=== PATIENT | male | born 1995 | race African-American/Black ===

== ENCOUNTER 2022-05-07 22:22 | Emergency (ER) | payer OTHER, SELFPAY ==
--- NOTE | ~2022-05-07 | XR_ITS ---
EXAMINATION: XR CHEST CLINICAL INFORMATION: Shortness of breath COMPARISON: None TECHNIQUE: Frontal view of the chest was obtained. FINDINGS: The lungs are clear. No airspace consolidation, pleural effusion, or pneumothorax. The cardiomediastinal silhouette is within normal limits. No acute osseous injury. XR/XR chest 1V IMPRESSION: No acute pulmonary process.
[2022-05-07 22:25] VITALS: BP 145/86; PULSE 94; RESP 22; TEMP 36.6; O2SAT 95; BMI 28.0
--- NOTE | 2022-05-07 22:38 | ED.SOB ---
HPI - SOB/Dyspnea General Chief Complaint: Dyspnea Stated Complaint: asthma Time Seen by Provider: 05/07/22 22:36 Source: patient Mode of arrival: ambulatory Limitations: no limitations History of Present Illness HPI Narrative: 26-year-old male presents for asthma exacerbation. States that he has been short of breath, with inspiratory and expiratory wheezing over the past few days. Patient does not have any medications for his asthma at this time, does not report fevers, chills, weakness or fatigue. MD elicited complaint: shortness of breath and asthma attack Pertinent past history: asthma Onset (ago): day(s) (3) Context: medication noncompliance Timing: progressively worsening Severity: moderate Exacerbating factors: exertion, movement, coughing, inspiration, talking and deep breaths Relieving factors: nothing Known history of: asthma Associated symptoms: denies other symptoms Treatment prior to arrival: none Related Data Home oxygen amount: none Previous Rx's Medication Instructions Recorded albuterol sulfate 0.63 mg/3 mL 0.63 mg (3 mL) inhalation Q4-6H 05/08/22 solution for nebulization PRN shortness of breath or wheezing #75 mL albuterol sulfate 90 mcg/actuation 2 puff inhalation Q4-6H PRN 05/08/22 aerosol inhaler (Ventolin HFA) shortness of breath or wheezing #6.7 grams prednisone 20 mg tablet 40 mg PO DAILY 5 days #10 tabs 05/08/22 Allergies Allergy/AdvReac Type Severity Reaction Status Date / Time amoxicillin Allergy Swelling Verified 05/07/22 22:29 iodine Allergy Swelling Verified 05/07/22 22:29 Penicillins Allergy Swelling Verified 05/07/22 22:29 Review of Systems Review of Systems: Constitutional: No Fever, No Chills ENT/Mouth: No Hoarseness, No sore throat, No Rhinorrhea Eyes: No Redness, No Discharge, No Vision Changes Cardiovascular: No Chest Pain, positive SOB, positive Dyspnea on Exertion, No Edema Respiratory: positive Cough, No Sputum, positive Wheezing Skin: No rash Neuro: No Weakness, No Numbness, No Headache Yes all other systems are reviewed and are negative [facility] Past Medical History Attestation statement: The following information was validated with the patient. Source: old records reviewed Social History Social History Advance Directives: No Advance Directives Information Provided: Yes Physical Exam Vital Signs: Vital Signs: Last Vital Signs Temp 98.1 F 05/08/22 00:12 Pulse 90 05/08/22 00:12 Resp 18 05/08/22 00:12 BP 113/82 05/08/22 00:12 Pulse Ox 96 05/08/22 00:12 O2 Del Method 05/08/22 00:12 BMI result Body Mass Index 28.0 Appearance: Alert. Oriented X3. No acute distress. Eyes: Pupils equal, round and reactive to light. ENT: Pharynx normal. Neck: Normal inspection. Neck supple. CVS: Tachycardic heart rate and rhythm. Apical pulses good pulses to extremities. Respiratory: Mild respiratory distress. Tachypneic. Inspiratory and expiratory wheezing with poor air flow. Abdomen: Soft and nontender. Skin: Skin warm and dry. Normal skin color. Normal skin turgor. Extremities: No lower extremity edema. Gait well-balanced well coordinated. Neuro: No motor deficit. No sensory deficit. Cranial nerves 2-12 intact. Course Course Course Narrative: 26-year-old male presents with asthma exacerbation. Has expiratory and inspiratory wheezing with poor air flow, tachypneic, and tachycardic. Patient is able to speak in complete sentences. Denies fevers, chills, edema and weakness. Will order chest x-ray, Solu-Medrol, albuterol neb and inhaler. 23:32 neb continues, no improvement lung sounds. We will order magnesium. 00:15 patient continues with expiratory wheezing have improved. Will order 2nd neb. 00:43 chest x-ray is negative for acute findings. COVID influenza RSV are negative. 20:46 lung sounds have improved. Will discharge patient home with prescription for albuterol and albuterol nebulizers and prednisone. Patient does not have a primary care physician, will refer to Dr. Wells. Patient does understand that if symptoms worsen that he should return for further evaluation. Patient verbalized understanding of and agrees to plan of care discharge home. Verbalized understanding of signs and symptoms indicating need for emergent intervention. Medications Administered Generic Name Dose Route Start Last Admin Trade Name Freq PRN Reason Stop Dose Admin Magnesium Sulfate 2 gm in 50 mls @ 25 mls/hr 05/07/22 23:34 05/07/22 23:47 Magnesium Sulfate/H2o IV 05/08/22 01:33 25 mls/hr ONCE ONE Administration Discontinued Medications Generic Name Dose Route Start Last Admin Trade Name Freq PRN Reason Stop Dose Admin Albuterol Sulfate 10 mg 05/07/22 22:38 05/07/22 22:51 Albuterol Sulfate (0.083%) 2.5 Mg/3 Ml Vial.Neb INHALE 05/07/22 22:39 10 mg ONCE ONE Administration Albuterol Sulfate 2 puff 05/07/22 22:39 05/07/22 22:51 Albuterol Sulfate 90 Mcg 8 Gm Inhaler INHALE 05/07/22 22:40 2 puff ONCE ONE Administration Albuterol Sulfate 5 mg 05/08/22 00:16 05/08/22 00:22 Albuterol Sulfate (0.083%) 2.5 Mg/3 Ml Vial.Neb INHALE 05/08/22 00:17 5 mg ONCE ONE Administration Methylprednisolone Sodium Succinate 125 mg 05/07/22 22:38 05/07/22 23:07 Methylprednisolone Sod Succ 125 Mg/2 Ml Vial IVPUSH 05/07/22 22:39 125 mg ONCE ONE Administration Medical Decision Making Differential Diagnosis Differential Diagnoses: The differential diagnosis associated with the presentation includes Asthma exacerbation, COVID, influenza, RSV Lab Data MDM Lab Attestation statement: I reviewed the patient's lab results. Labs: Lab Results 05/07/22 Range/Units 23:37 Influenza Type A (PCR) NEGATIVE (Negative) Influenza Type B (PCR) NEGATIVE (Negative) RSV RNA Qual (PCR) NEGATIVE (Negative) SARS-CoV-2 RNA (RT-PCR) NEGATIVE (Negative) Independent Interpretation I performed an independent interpretation of an: Plain X-Ray Radiology Impression Discussion of test interpretation with radiology: I have reviewed the radiologist's reading. Radiologist Impression: EXAMINATION: XR CHEST CLINICAL INFORMATION: Shortness of breath COMPARISON: None TECHNIQUE: Frontal view of the chest was obtained. FINDINGS: The lungs are clear. No airspace consolidation, pleural effusion, or pneumothorax. The cardiomediastinal silhouette is within normal limits. No acute osseous injury. XR/XR chest 1V IMPRESSION: No acute pulmonary process. External Record Review External record reviewed: Outpatient record Prescription Management I considered prescription management with: Other (Albuterol) Chronic Conditions Patient?s care impacted by: Other (Asthma) Discharge Plan Discharge Clinical Impression: Asthma with exacerbation Patient Disposition: Home, Self-Care Instructions: Asthma (ED), How to Use a Nebulizer (ED) Additional Instructions: You were evaluated for asthma exacerbation. Please take prednisone 40 mg for the next 5 days. Use albuterol nebs every 4-6 hours as needed for shortness of breath and wheezing that is not relieved by your albuterol inhaler. Use your albuterol inhaler as needed for shortness of breath and wheezing. Please follow-up with Dr. Wells at the urgent care clinic. You will require primary care, it may take you a few months to obtain a primary care physician. Thank you for choosing this emergency department for evaluation. Please follow-up with primary care physician as needed. Return to the emergency department for any new, concerning, or worsening symptoms. Prescriptions: New prednisone 20 mg tablet 40 mg PO DAILY 5 Days Qty: 10 0RF albuterol sulfate 0.63 mg/3 mL solution for nebulization 0.63 mg inhalation Q4-6H PRN (Reason: shortness of breath or wheezing) Qty: 75 0RF Rx Instructions: May dispense medication equivalent accepted by patient's insurance albuterol sulfate [Ventolin HFA] 90 mcg/actuation HFA aerosol inhaler 2 puff inhalation Q4-6H PRN (Reason: shortness of breath or wheezing) Qty: 6.7 3RF Rx Instructions: May dispense medication equivalent accepted by patient's insurance Referrals: Florentin Wells MD [Physician] - 2 weeks (Obtain primary care)
[2022-05-07] MEDS: Albuterol Sulfate 90 MCG 8 GM INHALER 2 PUFF INHALE (22:51)
[2022-05-07] MEDS: Albuterol Sulfate (0.083%) 2.5 MG/3 ML VIAL.NEB 10 MG INHALE (22:51)
[2022-05-07] MEDS: methylPREDNISolone Sod Succ 125 MG/2 ML VIAL IVPUSH (23:07)
--- OUTSIDE RECORDS SUMMARY | 2022-05-07 23:24 | XMS_ITS | Continuity of Care Document ---
:1995 Author Organization [facility] Address [address] [place] [address]- Care Team Providers Name Role Phone Rafael Nolasco Primary Care Physician Encounter [facility] [place] Date(s): 03/17/21 - 06/04/21 [facility] [address] [place], [place] [address] Attending Physician: Nata Rey MD Admitting Physician: Nata Rey MD Referring Physician: Rafael Nolasco Allergies, Adverse Reactions, Alerts Substance Reaction Severity Status penicillin Active Fish Persistent Severe Active Medications Acetaminophen 160 mg / 5 mL Liquid By Mouth, Every 4 hours, PRN Headache, 0 Refills, Maintenance, 10/17/18 15:51:46 EDT Start Date: 10/17/18 Status: Orderedalbuterol CFC free 90 mcg/inh inhalation aerosol 1, puffs, Inhalation, Every 4 hours, PRN, Refills 0, Maintenance, 10/17/18 15:48:08 EDT, Aerosol Start Date: 10/17/18 Status: Orderedfluticasone-salmeterol 100 mcg-50 mcg inhalation powder 1, puffs, Inhalation, 2 times a day, Refills 0, Maintenance, 10/17/18 15:47:55 EDT, Powder Start Date: 10/17/18 Status: Orderedpantoprazole 40 mg oral delayed release tablet 1 tablet = 40 mg, By Mouth, Daily, 0 Refills, Maintenance, 10/17/18 15:47:14 EDT Start Date: 10/17/18 Status: Ordered
--- OUTSIDE RECORDS SUMMARY | 2022-05-07 23:24 | XMS_ITS | Continuity of Care Document ---
:1995 Author Organization [facility] Address [address] [place] [address]- Care Team Providers Name Role Phone Rafael Nolasco Primary Care Physician Encounter [facility] [place] Date(s): 08/11/21 - 12/09/21 [facility] [address] [id number] Attending Physician: Hope Kidd Admitting Physician: Hope Kidd Referring Physician: Hope Kidd Allergies, Adverse Reactions, Alerts Substance Reaction Severity Status penicillin Active shellfish Active Fish Persistent Severe Active iodine Active Medications Acetaminophen 160 mg / 5 [...] 15:47:14 EDT Start Date: 10/17/18 Status: Ordered Problem List Condition Effective Dates Status Health Status Informant Asthma(Confirmed) Active Eczema(Confirmed) Active Care Team PersonnelName: Rafael Nolasco Address: [address] [place] [address] [place] [address]- [place]
--- OUTSIDE RECORDS SUMMARY | 2022-05-07 23:24 | XMS_ITS | Continuity of Care Document ---
:1995 Author Organization [facility] Address [address] [place] [address]- Care Team Providers Name Role Phone Rafael Nolasco Primary Care Physician Encounter [facility] [place] Date(s): 05/05/21 - 06/04/21 [facility] [address] [place], [place] [address] Attending Physician: Tom Javed Admitting Physician: Tom Javed Referring Physician: AdmtrTom Allergies, Adverse Reactions, Alerts Substance Reaction Severity [...]
--- OUTSIDE RECORDS SUMMARY | 2022-05-07 23:24 | XMS_ITS | Continuity of Care Document ---
:1995 Author Organization [facility] Address [address] [place] [address]- Care Team Providers Name Role Phone Rafael Nolasco Primary Care Physician Encounter [facility] [place] Date(s): 09/22/21 - 10/28/[address] [address] Attending Physician: Hope Kidd Admitting Physician: [...]
--- OUTSIDE RECORDS SUMMARY | 2022-05-07 23:24 | XMS_ITS | Continuity of Care Document ---
:1995 Author Organization [facility] Address [address] [place] [address]- Care Team Providers Name Role Phone Rafael Nolasco Primary Care Physician [place] [facility] [place]01[place]22 - 03/31/22 [facility] [address] [address] Attending Physician: Tom Javed Admitting Physician: Tom [...] Date: 10/17/18 Status: Ordered Problem List Condition Confirmation Course Effective Dates Status Health Stat us Informant Asthma Confirmed Active Eczema Confirmed Active Patient Care team information Care Team PersonnelName: Rafael Nolasco Position: S Outreach Member Role: PCP Address: Address: [address] [place] [address]- [place] Name: Chinedu LOVELL, Katy Read Position: [facility] Associate Professional Member Role: Primary Care Nurse Address: Address: [address] [place] [address]- Name: Reyna Lara RN Position: S RN Member Role: Primary Care Nurse Care Team Related PersonsName: STEFANI KING Address: home [address] [place] [id number]
--- OUTSIDE RECORDS SUMMARY | 2022-05-07 23:24 | XMS_ITS | Continuity of Care Document ---
:1995 Author Organization [facility] Address [address] [place] [address]- Care Team Providers Name Role Phone Rafael Nolasco Primary Care Physician [id number] 05/26/21 - 06/25/21 [facility] [address] [address] Attending Physician: Tom Javed Admitting Physician: AdmtrTom Referring Physician: Admtr, Ar8 Allergies, Adverse Reactions, Alerts Substance Reaction Severity [...]
[2022-05-07] MEDS: Magnesium Sulfate/H2O 2 GM/50 ML PIGGYBACK IV (23:47)
[2022-05-08 00:12] VITALS: BP 113/82; PULSE 90; RESP 18; TEMP 36.7; O2SAT 96
[2022-05-08 00:20] LABS: Influenza A PCR NEGATIVE (Negative); Influenza B PCR NEGATIVE (Negative); Resp Syncy Virus RNA Qual PCR NEGATIVE (Negative); SARS COV2 PCR INHOUSE NEGATIVE (Negative)
[2022-05-08] MEDS: Albuterol Sulfate (0.083%) 2.5 MG/3 ML VIAL.NEB 5 MG INHALE (00:22)
--- NOTE | 2022-05-08 02:03 | PC.NURSE ---
Addendum entered by Karthik Hutchison RN 05/08/22 02:17: Discharged at this time. I reviweqed all DC instructions and proper uses and indications for ALbuterol inhaler, Albuterol neb and prednisone and the pt verbalized an understanding. He ambulated out of the ED independently and with steady gait. At time of DC room air sat 99%, RR 18 non-labored. Original Note: I assumed nursing care of Alvaro at 2300 from everardo YAÑEZ. The pt is alert and oriented x 3, resting in bed. I initiated Magnesium infusion per MD order. Respirations appear spontaneous and non-labored, RR WNL, room air sat's are 95% or better, the pt speaks in full sentences. NO chest pain. NO nausea or vomiting. Speech clear and appropriate. Will prepare pt for DC.
== END 2022-05-08 02:36 | disposition home or self-care (01) ==
PROVIDERS: Nurse Practitioner Family; Emergency Provider Internal Medicine; PCP Physician Assistant Medical
DX: J45.901 Unspecified asthma with (acute) exacerbation (principal); R06.03 Acute respiratory distress; Z20.822 Contact with and (suspected) exposure to COVID-19; Z20.828 Contact with and (suspected) exposure to other viral communicable diseases
CPT/HCPCS: 0241U; 71045; 96374; 96375; 99284; 99285; J2930; J3475

== ENCOUNTER 2022-05-13 19:19 | Emergency (ER) | payer OTHER, SELFPAY ==
--- NOTE | ~2022-05-13 | XR_ITS ---
EXAMINATION: XR CHEST CLINICAL INFORMATION: Cough COMPARISON: 05/07/2022 TECHNIQUE: Frontal view of the chest was obtained. FINDINGS: No significant abnormality is noted involving the heart, lungs, mediastinum, bony thorax or soft tissues. XR/XR chest 1V IMPRESSION: Unremarkable examination.
--- NOTE | 2022-05-13 19:23 | ED.ASTHMA ---
HPI - Asthma General Chief Complaint: Upper Respiratory Symptoms Stated Complaint: SOB/Asthma Time Seen by Provider: 05/13/22 19:22 Source: patient and EMS Mode of arrival: EMS History of Present Illness HPI Narrative: This is a 26 years old male with history of asthma was brought in by the supervisor heading because of respiratory distress sat was in the 80s at the supervisor heading arrival, was given nebulizer pre arrival. MD complaint: asthma attack Onset (ago): day(s) Severity: moderate Context: none known Associated symptoms: productive cough Related Data Current Asthma Therapy: inhaled bronchodilator Previous Rx's Medication Instructions Recorded albuterol sulfate 0.63 mg/3 mL 0.63 mg (3 mL) inhalation Q4-6H 05/08/22 solution for nebulization PRN shortness of breath or wheezing #75 mL albuterol sulfate 90 mcg/actuation 2 puff inhalation Q4-6H PRN 05/08/22 aerosol inhaler (Ventolin HFA) shortness of breath or wheezing #6.7 grams prednisone 20 mg tablet 40 mg PO DAILY 5 days #10 tabs 05/08/22 albuterol sulfate 90 mcg/actuation 1 inh inhalation QID PRN shortness 05/14/22 aerosol inhaler of breath or wheezing #8.5 grams prednisone 20 mg tablet 60 mg PO DAILY #12 tabs 05/14/22 Allergies Allergy/AdvReac Type Severity Reaction Status Date / Time amoxicillin Allergy Swelling Verified 05/07/22 22:29 iodine Allergy Swelling Verified 05/07/22 22:29 Penicillins Allergy Swelling Verified 05/07/22 22:29 Review of Systems Constitutional: Constitutional: Reports no additional constitutional complaints Eyes: Eyes: Reports no additional eye complaints Cardiovascular: Cardiovascular: Reports no additional cardiovascular complaints Respiratory: Respiratory: Reports no additional respiratory complaints Gastrointestinal: Gastrointestinal: Reports no additional gastrointestinal complaints [facility] Past Medical History [facility] Narrative: asthma Social History Social History Alcohol intake: never Smoked in Last 30 Days: No Use of substances other than those prescribed or required for medical reasons: No Advance Directives: No Advance Directives Information Provided: No Physical Exam Vital Signs: Vital Signs: Last Vital Signs Temp 98.1 F 05/13/22 22:12 Pulse 99 05/13/22 22:12 Resp 16 05/13/22 22:12 BP 111/69 02/02/23 22:12 Pulse Ox 94 05/13/22 22:12 O2 Del Method 05/13/22 22:12 Oxygen Flow Rate 6 05/13/22 19:36 BMI result Body Mass Index 28.0 Const: General: cooperative Nutritional Appearance: well nourished Orientation/consciousness: patient oriented x3 HEENT: Head: Yes normal to inspection General nose exam: Normal external nose present Face and sinus: Yes normal facial exam Mouth: Normal oral and palatal mucosa present Throat: Yes posterior oropharynx normal Neck: Neck: Yes normal visual inspection Thyroid: Thyroid normal Chest: Chest palpation & inspection: normal inspection of the chest Resp: Effort & Inspection: audible wheezes Auscultation: wheezes Cardio: Jugular venous distension: no JVD Rate: regular rate GI: Inspection: Yes normal to inspection Palpation (GI): Soft to palpation, not firm and nontender : General: Yes no CVA tenderness Back/Spine/Pelvis: Back: no CVA tenderness Thoracic/Lumbar Spine: thoracic and lumbar spine normal to inspection Skin: General skin exam: no rashes or lesions noted and elasticity normal Lesions: no lesions Rashes: no rashes Neuro: General: patient oriented x3 Cognition (Neuro): normal cognition Gait exam (Neuro): Normal gait present Course Reevaluation(s) Reevaluation #1: reeaxamined feels much better 02 Sat 95% eating and drinking wants to go home Time: 23:27 Medications Administered Discontinued Medications Generic Name Dose Route Start Last Admin Trade Name Freq PRN Reason Stop Dose Admin Albuterol Sulfate 7.5 mg 05/13/22 19:28 05/13/22 20:05 Albuterol Sulfate (0.083%) 2.5 Mg/3 Ml Vial.Neb INHALE 05/13/22 19:29 7.5 mg ONCE ONE Administration Methylprednisolone Sodium Succinate 125 mg 05/13/22 19:28 05/13/22 19:56 Methylprednisolone Sod Succ 125 Mg/2 Ml Vial IVPUSH 05/13/22 19:29 125 mg ONCE ONE Administration Medical Decision Making Medical Decision Making [facility] Narrative: Presented with asthma exacerbation,runned out of inhaler,will give albuterol solumedrol and reassess Differential Diagnosis Differential Diagnoses: The differential diagnosis associated with the presentation includes asthma ex/pneumonia/PNX Admission/Observation Consideration of admission/observation: Escalation of care including admission/observation considered Lab Data MDM Lab Attestation statement: I reviewed the patient's lab results. 05/13/22 19:46 05/13/22 19:46 Labs: Lab Results 05/13/22 05/13/22 Range/Units 19:46 19:46 WBC 7.6 (4.8-10.8) X10*3/uL RBC 6.48 H (4.60-5.80) X10*6/uL Hgb 15.8 (14.0-18.0) g/dl Hct 51.0 (42.0-52.0) % MCV 78.7 L (80.0-98.0) fL MCH 24.4 L (27.0-33.0) pg MCHC 31.0 (31.0-36.0) g/dl RDW 14.7 (11.0-16.0) % Plt Count 264 (160-400) X10*3/uL MPV 8.9 L (9.4-12.4) fL Immature Gran % (Auto) 0.3 (0.0-0.4) % Neut % (Auto) 61.1 (45-73) % Lymph % (Auto) 24.2 (20-40) % Culberson % (Auto) 5.2 (2-11) % Eos % (Auto) 8.1 H (0-4) % Baso % (Auto) 1.1 (0-2) % Lymph # (Auto) 1.8 (1.2-4.9) X10*3/uL Culberson # (Auto) 0.4 (0.1-1.2) X10*3/uL Eos # (Auto) 0.6 H (0.0-0.4) X10*3/uL Baso # (Auto) 0.1 (0.0-0.2) X10*3/uL Abs Immat Gran (auto) 0.02 (0.00-0.03) X10*3/uL Absolute Neuts (auto) 4.6 (2.0-8.3) x10*3/uL Absolute Nucleated RBC 0.000 (0.0-0.012) X10*3/uL Nucleated RBC % (auto) 0.0 (0.0-0.2) /100WBC Sodium 140 (135-145) mmol/L Potassium 4.3 (3.3-5.1) mmol/L Chloride 106 (96-108) mmol/L Carbon Dioxide 28 (22-29) mmol/L Anion Gap 10 L (12-20) BUN 15 (9-16) mg/dL Creatinine 0.78 (0.5-1.4) mg/dL Estim Creat Clear Calc 154.7 Estimated GFR > 60 Random Glucose 89 (60-115) mg/dL Calcium 9.4 (8.4-10.2) mg/dL Total Bilirubin 1.0 (0.0-1.0) mg/dL AST 18 (5-37) U/L ALT 19 (0-40) U/L Alkaline Phosphatase 60 (39-117) U/L Total Protein 7.4 (6.5-8.0) g/dL Albumin 4.6 (3.5-5.0) g/dL Independent Interpretation I performed an independent interpretation of an: Plain X-Ray Interpretation: normal cxr Radiology Impression Radiologist Impression: EXAMINATION: XR CHEST CLINICAL INFORMATION: Cough COMPARISON: 05/07/2022 TECHNIQUE: Frontal view of the chest was obtained. FINDINGS: No significant abnormality is noted involving the heart, lungs, mediastinum, bony thorax or soft tissues. XR/XR chest 1V IMPRESSION: Unremarkable examination. ? Dictated By: Nalini Flood MD Signed By: <Electronically signed by Nalini Flood MD in? Discharge Plan Discharge Clinical Impression: Asthma exacerbation Patient Disposition: Home, Self-Care Instructions: Asthma (ED) Additional Instructions: follow up with your Primary care doctor return if worse Prescriptions: New prednisone 20 mg tablet 60 mg PO DAILY Qty: 12 0RF albuterol sulfate 90 mcg/actuation HFA aerosol inhaler 1 inh inhalation QID PRN (Reason: shortness of breath or wheezing) Qty: 8.5 0RF No Action prednisone 20 mg tablet 40 mg PO DAILY 5 Days Qty: 10 0RF albuterol sulfate 0.63 mg/3 mL solution for nebulization 0.63 mg inhalation Q4-6H PRN (Reason: shortness of breath or wheezing) Qty: 75 0RF Rx Instructions: May dispense medication equivalent accepted by patient's insurance albuterol sulfate [Ventolin HFA] 90 mcg/actuation HFA aerosol inhaler 2 puff inhalation Q4-6H PRN (Reason: shortness of breath or wheezing) Qty: 6.7 3RF Rx Instructions: May dispense medication equivalent accepted by patient's insurance Referrals: Physician,Unknown J [Primary Care Provider] - 3 days
[2022-05-13 19:27] VITALS: BP 112/76; BP 130/81; PULSE 100; PULSE 83; RESP 18; TEMP 36.9; O2SAT 86; O2SAT 99; BMI 28.0
[2022-05-13 19:36] VITALS: O2SAT 100
[2022-05-13 19:51] LABS: MANUAL DIFF FLAG NO
[2022-05-13] MEDS: methylPREDNISolone Sod Succ 125 MG/2 ML VIAL IVPUSH (19:56)
[2022-05-13 19:57] LABS: Basophils Absolute Auto 0.1 X10*3/uL (0.0-0.2); Basophils Percent Auto 1.1 % (0-2); Eosinophils Absolute Auto 0.6 X10*3/uL (0.0-0.4); Eosinophils Percent Auto 8.1 % (0-4); Hemoglobin 15.8 g/dl (14.0-18.0); Imm Gran Abs Auto 0.02 X10*3/uL (0.00-0.03); Imm Gran Pct Auto 0.3 % (0.0-0.4); Lymphocytes Absolute Auto 1.8 X10*3/uL (1.2-4.9); Lymphocytes Percent Auto 24.2 % (20-40); Mean Corpuscular Hemoglobin 24.4 pg (27.0-33.0); Mean Corpuscular Volume 78.7 fL (80.0-98.0); Mean Platelet Volume 8.9 fL (9.4-12.4); Monocytes Absolute Auto 0.4 X10*3/uL (0.1-1.2); Monocytes Percent Auto 5.2 % (2-11); Neutrophils Absolute Auto 4.6 x10*3/uL (2.0-8.3); Neutrophils Percent Auto 61.1 % (45-73); Platelet Count 264 X10*3/uL (160-400); Red Blood Count 6.48 X10*6/uL (4.60-5.80); Red Cell Distribution Width 14.7 % (11.0-16.0); White Blood Count 7.6 X10*3/uL (4.8-10.8)
--- NOTE | 2022-05-13 19:58 | PC.NURSE ---
BIBA from home with shortness of breath, O2 Sat 86% on RA. Patient reports history of asthma, he is unable to pharmacy picking tech his rescue inhaler from the [facility] pharmacy because he does not have his health insurance card. Per EMS report pt's O2 Sat was 86% on RA, patient received Atrovent and Duoneb treatment x2 on the way to ED. EMS attempted to establish IV line in left hand with no success. Patient arrived to the ED on O2 6 LPM NC saturating 99-100%. Patient afebrile, VSS. 20 G IV line established in R AC. Labs drawn per MD orders and sent to the lab for processing. CXR competed. Patient received Solumedrol IV push. Patient is alert and oriented x3. He is able to speak in full sentences. Supplemental O2 titrated to 4 LPM NC 98-99% at present. RT at bedside administering Albuterol neb tx. Patient oriented to ED room, call shin within patient's reach.
[2022-05-13] MEDS: Albuterol Sulfate (0.083%) 2.5 MG/3 ML VIAL.NEB 7.5 MG INHALE (20:05)
[2022-05-13 20:07] LABS: Alanine Aminotransferase 19 U/L (0-40); Albumin Level 4.6 g/dL (3.5-5.0); Alkaline Phosphatase 60 U/L (39-117); Anion Gap 10 (12-20); Aspartate Amino Transferase 18 U/L (5-37); Blood Urea Nitrogen 15 mg/dL (9-16); Calcium 9.4 mg/dL (8.4-10.2); Carbon Dioxide 28 mmol/L (22-29); Chloride 106 mmol/L (96-108); Creatinine Clr Calc Pharmacy 154.7; Estimated Glomerular Filt Rate > 60; Glucose Random 89 mg/dL (60-115); Potassium 4.3 mmol/L (3.3-5.1); Sodium 140 mmol/L (135-145); Total Protein 7.4 g/dL (6.5-8.0)
[2022-05-13 20:08] VITALS: PULSE 88; RESP 18; O2SAT 99
[2022-05-13 21:08] VITALS: BP 120/68; PULSE 102; RESP 18; TEMP 36.7; O2SAT 96
[2022-05-13 22:12] VITALS: BP 111/69; PULSE 99; RESP 16; TEMP 36.7; O2SAT 94
--- NOTE | 2022-05-13 22:21 | PC.NURSE ---
Patient is resting comfortably in a stretcehr bed with his eyes closed. VSS. O2 Sat 92-94% on RA. No s/s of respiratory distress noted. Call shin within patient's reach.
[2022-05-14 01:07] VITALS: BP 121/68; PULSE 83; RESP 18; TEMP 36.6; O2SAT 95
[2022-05-14] MEDS: Albuterol Sulfate 90 MCG 8 GM INHALER 2 PUFF INHALE (01:38)
== END 2022-05-14 01:39 | disposition home or self-care (01) ==
PROVIDERS: Emergency Provider Emergency Medicine
DX: J45.901 Unspecified asthma with (acute) exacerbation (principal)
CPT/HCPCS: 36415; 71045; 80053; 85025; 94640; 96374; 99284; 99285; J2930

== ENCOUNTER 2022-06-08 18:29 | Emergency (ER) | payer OTHER, SELFPAY ==
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
[2022-06-08 18:36] VITALS: BP 120/73; PULSE 95; RESP 20; TEMP 36.6; O2SAT 94; BMI 28.0
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
== END 2022-06-08 20:56 | disposition home or self-care (01) ==
PROVIDERS: Emergency Provider Student in an Organized Health Care Education/Training Program
DX: M54.2 Cervicalgia (principal); M54.50 Low back pain, unspecified
CPT/HCPCS: 70450; 72125; 99282; 99284